=== PATIENT | female | born 1965 | race Caucasian/White ===

== ENCOUNTER 2016-07-16 17:19 | Observation (INO) | payer MEDICARE ==
[~2016-07-16] VITALS: Ht 160 cm; Wt 72.6 kg
[~2016-07-16 17:19] MED LIST: ALBUTEROL SUL0.083 % IN; AMITRIPTYLIN25 MG OR; AMITRIPTYLIN25 MG PO; B-12500 MCG SL; BACLOFEN10 MG OR; BL IBUPROFEN200 MG PO; CARDIZEM30 MG PO; CHERATUSSIN OR; CIPROFLOXACN500 MG PO; CITALOPRAM20 MG PO; CLONAZEPAM0.5 MG OR; CLONAZEPAM1 MG PO; CLONAZEPAM2 MG PO; DEPAKOTE ER500 MG PO; DICLOFENAC SODI75 MG PO; DILTIAZEM30 MG PO; EFFEXOR XR37.5 MG PO; ELAVIL25 MG OR; ELAVIL25 MG PO; ESTRACE2 M1 PO; FLEXERIL PO; GABAPENTIN300 MG OR; KETOROLAC60 MG/2 ML IJ; LIPITOR20 MG PO; LORATADINE10 M1 PO; LORTAB 1010 MG PO; LORTAB 5/3255 MG PO; LOVASTATIN10 M1 PO; LOVASTATIN10 MG PO; MAXALT10 MG OR; MAXALT10 MG PO; MEDDOSEPAK PO; MEDROL4 M1 PO; MELATONIN3 MG PO; MIRAPEX ER0.375 MG PO; MULTIVITAMIN OR; NAPROSYN375 MG PO; NEXIUM40 M1 PO; NEXIUM40 MG PO; NITROSTAT0.4 MG SL; NORCO1 TA1 PO; NORCO1 TAB PO; ONE DAILY FOR WOME1 PO; PERCOCET 10/31 COMBO PO; PHENERGAN25 MG/TAB PO; PRAMIPEXOLE0.125 MG PO; PYRIDIUM200 MG PO; ROBITUSSIN200 MG/10 PO; STERAPRED DS10 MG PO; TESSALON PER100 MG PO; TIZANIDINE HCL4 M1 OR; TIZANIDINE4 MG PO; TOPIRAMATE100 MG PO; TOPIRAMATE25 M1 PO; TOPIRAMATE25 MG PO; TOPIRAMATE50 MG PO; TYLENOL # 31 TA1 PO; ULTRAM50 MG OR; ULTRAM50 MG PO; VICODIN1 TAB PO; ZITHROMAX250 MG OR; ZITHROMAX250 MG PO; ZITHROMAX500 MG OR; ZOFRAN ODT4 MG PO; ZOFRAN ODT8 MG PO
--- NOTE | 2016-07-16 17:36 | NUR ---
PATIENT AMBULATED TO ROOM WITH STEADY GAIT
[2016-07-16] MEDS ORDERED: DILTIAZEM30 MG PO (18:06)
--- NOTE | 2016-07-16 18:06 | NUR ---
PT NOW WITH IV ESTABLISHED, BLOOD DRAWN, AMBULATES TO FOR URINE SPECIMEN. NO DISTRESS NOTED.
[2016-07-16] MEDS ORDERED: PERCOCET1 TA4 PO (18:11)
[2016-07-16] MEDS ORDERED: TEGRETOL200 MG PO (18:11)
[2016-07-16 18:13] LABS: HEMOGLOBIN 11.7 g/dl (12.0-16.0); IMMATURE GRANULOCYTES 0.2 % (0.0-1.0); MEAN CELL VOLUME 85.5 fL CALC (80.0-100.0); MEAN CORPUSCULAR HGB 27.8 pG CALC (26.0-32.0); MEAN CORPUSCULAR HGB CONC 32.5 g/L CALC (32.0-36.0); NEUT# 4.63 thou/uL (2.00-7.15); RED BLOOD COUNT 4.21 mill/uL (4.20-5.60); RED CELL DISTRI WIDTH 13.7 % (11.5-15.5)
[2016-07-16 18:21] LABS: ALBUMIN 4.4 g/dL (3.2-5.0); ALKALINE PHOSPHATASE 124 u/l (38-126); AMYLASE 79 u/l (30-110); ANION GAP 18 (6-22 (CALC)); BILIRUBIN, TOTAL 0.4 mg/dL (0.0-1.4); BUN 9 mg/dL (7-17); BUN/CREATININE RATIO 10 (12-20 (CALC)); CARBON DIOXIDE 23 mmol/l (22-30); CHLORIDE 108 mmol/l (95-108); CREATININE 0.9 mg/dL (0.5-1.0); GFR > 60 ML/MIN (>=60 (CALC)); GFR FOR AFR.AMER. > 60 ML/MIN (>=60 (CALC)); GLUCOSE 95 mg/dL (65-105); LIPASE 97 u/l (23-300); POTASSIUM 3.4 mmol/l (3.5-5.1); SGOT/AST 34 u/l (14-36); SGPT/ALT 41 u/l (9-52); SODIUM 145 mmol/l (137-146)
[2016-07-16 18:33] LABS: MYOGLOBIN 36 ng/mL (0 - 62)
--- NOTE | 2016-07-16 18:34 | NUR ---
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 PT CONFIRMS COMPLETE HYSTERECTOMY AND BILAT SALPINGECTOMY/OOPHORECTOMY
[2016-07-16 18:41] LABS: URINE BILIRUBIN - DIPSTICK NEGATIVE (NEGATIVE); URINE BLOOD DIPSTICK NEGATIVE (NEGATIVE); URINE CLARITY CLEAR; URINE COLOR YELLOW; URINE GLUCOSE - DIPSTICK NEGATIVE (NEGATIVE); URINE KETONE NEGATIVE (NEGATIVE); URINE LEUK ESTERASE TRACE (NEGATIVE); URINE NITRITE - DIPSTICK NEGATIVE (Negative); URINE PROTEIN - DIPSTICK NEGATIVE (NEG-TRACE); URINE UROBILINOGEN - DIPSTICK 0.2 E.U./dL (0.2)
--- NOTE | 2016-07-16 19:34 | NUR ---
PT HAS BEEN DRINKING ORAL CONTRAST PROVIDED, NOW WAITS FOR CT.
--- NOTE | 2016-07-16 21:35 | NUR ---
REPORT RECIEVED. CARE ASSUMED. PATIENT RESTING ON STRETCHER. AWAITING CAT SCAN RESULTS AND PLAN OF CARE.
--- NOTE | 2016-07-16 21:50 | NUR ---
PATIENT TO BE ADMITTED. AWARE OF PLAN OF CARE.
--- NOTE | 2016-07-16 21:56 | NUR ---
PATIENT AMBULATORY TO BATHROOM. STATES SHE IS HAVING DIARRHEA. RLQ PAIN IS UNCHANGED. AWAITING ADMISSION ORDERS AND ROOM ASSIGNMENT.
[2016-07-16 22:10] LABS: BARBITURATES NEGATIVE (NEGATIVE); COCAINE NEGATIVE (NEGATIVE); METHADONE NEGATIVE (NEGATIVE); OXCYCODONE POSITIVE (NEGATIVE); TETRAHYDROCANNABIONOL NEGATIVE (NEGATIVE); TRICYLIC ANTIDEPRESSANTS POSITIVE (NEGATIVE)
--- NOTE | 2016-07-16 22:10 | NUR ---
REPORT CALLED TO [facility]. PATIENT READIED FOR TRANSPORT TO FLOOR.
[2016-07-16 22:20] VITALS: BP 138/87
--- NOTE | 2016-07-16 22:20 | NUR ---
PT ARRIVED TO ROOM 273 VIA W/C ACCOMPANIED BY STAFF, AMBULATING TO STANDING SCALE THEN TO BATHROOM WITH STEADY GAIT. PASSING FLATUS AND LOOSE STOOLS AFTER CT WITH ORAL CONTRAST. ADMITS TO ABD PAIN 06/05. ORIENTED TO BED CONTROLS AND CALL LIGHT.
--- NOTE | 2016-07-17 01:00 | NUR ---
RESTING ON LEFT SIDE WITH EYES CLOSED, RESPIRATIONS EVEN AND UNLABORED.
[2016-07-17 03:30] VITALS: BP 97/52
--- NOTE | 2016-07-17 04:00 | NUR ---
MORNING BLOOD WORK DRAWN BY SERVICE CREW LEADER, TOLERATED WELL.
[2016-07-17 05:19] LABS: HEMATOCRIT 39.8 % (37.0-47.0); HEMOGLOBIN 12.6 g/dl (12.0-16.0); MEAN CELL VOLUME 87.9 fL CALC (80.0-100.0); MEAN CORPUSCULAR HGB 27.8 pG CALC (26.0-32.0); MEAN CORPUSCULAR HGB CONC 31.7 g/L CALC (32.0-36.0); RED BLOOD COUNT 4.53 mill/uL (4.20-5.60); RED CELL DISTRI WIDTH 13.6 % (11.5-15.5)
[2016-07-17 05:47] LABS: ANION GAP 16 (6-22 (CALC)); BUN 7 mg/dL (7-17); BUN/CREATININE RATIO 9 (12-20 (CALC)); CALCIUM 9.3 mg/dL (8.4-10.2); CARBON DIOXIDE 20 mmol/l (22-30); CHLORIDE 112 mmol/l (95-108); CREATININE 0.8 mg/dL (0.5-1.0); GFR > 60 ML/MIN (>=60 (CALC)); GFR FOR AFR.AMER. > 60 ML/MIN (>=60 (CALC)); GLUCOSE 132 mg/dL (65-105); POTASSIUM 4.1 mmol/l (3.5-5.1); SODIUM 144 mmol/l (137-146)
[2016-07-17 08:30] VITALS: BP 107/71
--- NOTE | 2016-07-17 08:30 | NUR ---
PT ASSESSMENT IS COMPLETED: IV SITE IS FREE FROM REDNESS OR EDEMA. PT AMBULATED TO THE BATHROOM. CONTINUE TO OSBERVE AND MONITOR.
--- NOTE | 2016-07-17 12:59 | NUR ---
PT IS SITTING UP IN BED DRINKING HER CLEAR LIQUID DIET, TOLERATING WELL. IV SITE REMOVED CATHETER INTACT. CONTINUE TO OBSERVE AND MONITOR.
--- NOTE | 2016-07-17 15:00 | NUR ---
PT RECEIVED DISCHARGE INSTRUCTIONS THE IV SITE DISCONTINUED CATHETER INTACT. NO REDNESS OR EDEMA. PT C/O HAVING DIARRHEA AGAIN AND SOME STOMACH CRAMPING. STATED" I HAD THAT STUFF LAST NIGHT," EXPLAINED THAT SHE NEEDS TO DRINK FLUID TO WASH OUT THE CONTRAST. VERBALIZED UNDERSTANDING.
== END 2016-07-17 15:03 | disposition home or self-care (01) ==
LOC: ENPENDDIS → ED 17:19 → ED-I 21:35 → ED 21:43 → MS2 21:44
PROVIDERS: Emergency Medicine; ADMIT Internal Medicine; ATTEND Internal Medicine
DX: R10.31 Right lower quadrant pain (principal); K58.0 Irritable bowel syndrome with diarrhea; N80.9 Endometriosis, unspecified; M79.7 Fibromyalgia; F32.9 Major depressive disorder, single episode, unspecified; G43.909 Migraine, unspecified, not intractable, without status migrainosus; R00.0 Tachycardia, unspecified; R25.1 Tremor, unspecified; E87.6 Hypokalemia; R11.0 Nausea; Z79.899 Other long term (current) drug therapy
CPT/HCPCS: Q9967

== ENCOUNTER 2016-08-29 01:45 | Emergency (ER) | payer MEDICARE ==
[~2016-08-29] VITALS: Ht 160 cm; Wt 70.8 kg
[~2016-08-29 01:45] MED LIST changes: +PERCOCET1 TA4 PO; +TEGRETOL200 MG PO
[2016-08-29] MEDS ORDERED: TOPIRAMATE100 MG PO (02:08)
[2016-08-29] MEDS ORDERED: PROAIR HFA IN (02:12)
[2016-08-29 02:55] LABS: HEMATOCRIT 35.3 % (37.0-47.0); HEMOGLOBIN 11.2 g/dl (12.0-16.0); IMMATURE GRANULOCYTES 0.1 % (0.0-1.0); MEAN CELL VOLUME 86.9 fL CALC (80.0-100.0); MEAN CORPUSCULAR HGB 27.6 pG CALC (26.0-32.0); MEAN CORPUSCULAR HGB CONC 31.7 g/L CALC (32.0-36.0); NEUT# 2.96 thou/uL (2.00-7.15); RED BLOOD COUNT 4.06 mill/uL (4.20-5.60); RED CELL DISTRI WIDTH 13.5 % (11.5-15.5)
[2016-08-29 03:07] LABS: ALBUMIN 3.7 g/dL (3.2-5.0); ALKALINE PHOSPHATASE 176 u/l (38-126); AMYLASE 64 u/l (30-110); ANION GAP 13 (6-22 (CALC)); BILIRUBIN, TOTAL 0.3 mg/dL (0.0-1.4); BUN 12 mg/dL (7-17); BUN/CREATININE RATIO 16 (12-20 (CALC)); CALCIUM 9.4 mg/dL (8.4-10.2); CARBON DIOXIDE 23 mmol/l (22-30); CHLORIDE 108 mmol/l (95-108); CREATININE 0.7 mg/dL (0.5-1.0); GFR > 60 ML/MIN (>=60 (CALC)); GFR FOR AFR.AMER. > 60 ML/MIN (>=60 (CALC)); GLUCOSE 101 mg/dL (65-105); LIPASE 151 u/l (23-300); POTASSIUM 3.6 mmol/l (3.5-5.1); SGOT/AST 70 u/l (14-36); SGPT/ALT 141 u/l (9-52); SODIUM 140 mmol/l (137-146); TOTAL PROTEIN 7.1 g/dL (6.3-8.2)
[2016-08-29 03:19] LABS: MYOGLOBIN 24 ng/mL (0 - 62)
[2016-08-29 10:17] VITALS: BP 133/76
== END 2016-08-29 10:48 | disposition home or self-care (01) ==
LOC: ED 01:45
PROVIDERS: Emergency Medicine
DX: R10.11 Right upper quadrant pain (principal); R74.8 Abnormal levels of other serum enzymes

== ENCOUNTER 2017-04-03 13:55 | Emergency (ER) | payer MEDICARE ==
[~2017-04-03] VITALS: Ht 160 cm; Wt 67.0 kg
[~2017-04-03 13:55] MED LIST changes: +PROAIR HFA IN
[2017-04-03] MEDS ORDERED: ZITHROMAX250 MG PO (14:51)
[2017-04-03 14:55] VITALS: BP 139/74
== END 2017-04-03 14:55 | disposition home or self-care (01) ==
LOC: ED 13:55
DX: J40 Bronchitis, not specified as acute or chronic (principal); H66.90 Otitis media, unspecified, unspecified ear; F32.9 Major depressive disorder, single episode, unspecified; M79.7 Fibromyalgia

== ENCOUNTER 2017-04-05 20:43 | Emergency (ER) | payer MEDICARE ==
[~2017-04-05] VITALS: Ht 160 cm; Wt 68.0 kg
[2017-04-05 21:54] LABS: AMYLASE 106 u/l (30-110); LIPASE 287 u/l (23-300)
[2017-04-05 22:07] LABS: MYOGLOBIN 26 ng/mL (0 - 62)
[2017-04-05 23:14] LABS: URINE BILIRUBIN - DIPSTICK NEGATIVE (NEGATIVE); URINE BLOOD DIPSTICK NEGATIVE (NEGATIVE); URINE CLARITY CLEAR; URINE COLOR YELLOW; URINE GLUCOSE - DIPSTICK NEGATIVE (NEGATIVE); URINE KETONE NEGATIVE (NEGATIVE); URINE LEUK ESTERASE NEGATIVE (NEGATIVE); URINE NITRITE - DIPSTICK NEGATIVE (Negative); URINE PH 5.5 (4.5-8.0); URINE PROTEIN - DIPSTICK NEGATIVE (NEG-TRACE); URINE SPECIFIC GRAVITY 1.025; URINE UROBILINOGEN - DIPSTICK 0.2 E.U./dL (0.2)
[2017-04-06 03:54] VITALS: BP 132/74
== END 2017-04-06 04:00 | disposition home or self-care (01) ==
LOC: ED 20:43
PROVIDERS: Emergency Medicine
DX: R10.13 Epigastric pain (principal); R10.33 Periumbilical pain; R11.2 Nausea with vomiting, unspecified; E78.4 Other hyperlipidemia

== ENCOUNTER 2017-06-18 22:39 | Emergency (ER) | payer MEDICARE ==
[~2017-06-18] VITALS: Ht 160 cm; Wt 70.0 kg
[2017-06-19 01:30] LABS: IMMATURE GRANULOCYTES 0.2 % (0.0-1.0); MEAN CELL VOLUME 87.5 fL CALC (80.0-100.0); MEAN CORPUSCULAR HGB 27.9 pG CALC (26.0-32.0); MEAN CORPUSCULAR HGB CONC 31.9 g/L CALC (32.0-36.0); NEUT# 4.99 thou/uL (2.00-7.15); RED BLOOD COUNT 4.23 mill/uL (4.20-5.60); RED CELL DISTRI WIDTH 13.5 % (11.5-15.5)
[2017-06-19 01:38] LABS: HEMOGLOBIN 11.8 g/dl (12.0-16.0)
[2017-06-19 01:40] LABS: ALBUMIN 4.3 g/dL (3.2-5.0); ALKALINE PHOSPHATASE 192 u/l (38-126); ANION GAP 18 (6-22 (CALC)); BILIRUBIN, TOTAL 0.3 mg/dL (0.0-1.4); BUN 13 mg/dL (7-17); BUN/CREATININE RATIO 14 (12-20 (CALC)); CARBON DIOXIDE 23 mmol/l (22-30); CHLORIDE 110 mmol/l (95-108); CREATININE 0.9 mg/dL (0.5-1.0); GFR > 60 ML/MIN (>=60 (CALC)); GFR FOR AFR.AMER. > 60 ML/MIN (>=60 (CALC)); SGPT/ALT 247 u/l (9-52); SODIUM 146 mmol/l (137-146); TOTAL PROTEIN 7.3 g/dL (6.3-8.2)
[2017-06-19 01:44] LABS: SGOT/AST 109 u/l (14-36)
[2017-06-19 01:55] LABS: MYOGLOBIN 242 ng/mL (0 - 62)
[2017-06-19 03:00] VITALS: BP 103/74
== END 2017-06-19 03:10 | disposition left against medical advice (07) ==
LOC: ED 22:39
PROVIDERS: Emergency Medicine
DX: R07.9 Chest pain, unspecified (principal); M79.605 Pain in left leg; R22.42 Localized swelling, mass and lump, left lower limb; Z91.19 Patient's noncompliance with other medical treatment and regimen; M79.7 Fibromyalgia; K21.9 Gastro-esophageal reflux disease without esophagitis

== ENCOUNTER 2017-10-15 19:55 | Emergency (ER) | payer MEDICARE ==
[~2017-10-15] VITALS: Ht 160 cm; Wt 71.2 kg
[2017-10-15 20:50] LABS: URINE BILIRUBIN - DIPSTICK NEGATIVE (NEGATIVE); URINE BLOOD DIPSTICK NEGATIVE (NEGATIVE); URINE COLOR YELLOW; URINE GLUCOSE - DIPSTICK NEGATIVE (NEGATIVE); URINE KETONE NEGATIVE (NEGATIVE); URINE LEUK ESTERASE TRACE (NEGATIVE); URINE NITRITE - DIPSTICK NEGATIVE (Negative); URINE PROTEIN - DIPSTICK NEGATIVE (NEG-TRACE); URINE SPECIFIC GRAVITY >=1.030; URINE UROBILINOGEN - DIPSTICK 0.2 E.U./dL (0.2)
[2017-10-15 20:51] LABS: HEMATOCRIT 38.7 % (37.0-47.0); HEMOGLOBIN 12.2 g/dl (12.0-16.0); IMMATURE GRANULOCYTES 0.3 % (0.0-1.0); MEAN CELL VOLUME 87.2 fL CALC (80.0-100.0); MEAN CORPUSCULAR HGB 27.5 pG CALC (26.0-32.0); MEAN CORPUSCULAR HGB CONC 31.5 g/L CALC (32.0-36.0); NEUT# 4.77 thou/uL (2.00-7.15); RED BLOOD COUNT 4.44 mill/uL (4.20-5.60); RED CELL DISTRI WIDTH 13.8 % (11.5-15.5)
[2017-10-15 21:01] LABS: URINE CLARITY CLEAR
[2017-10-15 21:16] LABS: ALBUMIN 4.1 g/dL (3.2-5.0); ALKALINE PHOSPHATASE 138 u/l (38-126); ANION GAP 14 (6-22 (CALC)); BILIRUBIN, TOTAL 0.4 mg/dL (0.0-1.4); BUN 8 mg/dL (7-17); BUN/CREATININE RATIO 9 (12-20 (CALC)); CARBON DIOXIDE 23 mmol/l (22-30); CHLORIDE 110 mmol/l (95-108); CPK 73 u/l (30-165); CREATININE 0.9 mg/dL (0.5-1.0); GFR > 60 ML/MIN (>=60 (CALC)); GFR FOR AFR.AMER. > 60 ML/MIN (>=60 (CALC)); POTASSIUM 4.4 mmol/l (3.5-5.1); SGOT/AST 61 u/l (14-36); SGPT/ALT 89 u/l (9-52); SODIUM 142 mmol/l (137-146); TOTAL PROTEIN 7.7 g/dL (6.3-8.2)
[2017-10-15 21:27] LABS: MYOGLOBIN 32 ng/mL (0 - 62)
[2017-10-15 21:50] VITALS: BP 125/74
== END 2017-10-15 21:50 | disposition home or self-care (01) ==
LOC: ED 19:55
PROVIDERS: Family Medicine
DX: T67.5XXA Heat exhaustion, unspecified, initial encounter (principal); M79.7 Fibromyalgia; K21.9 Gastro-esophageal reflux disease without esophagitis; G43.909 Migraine, unspecified, not intractable, without status migrainosus; X30.XXXA Exposure to excessive natural heat, initial encounter; Y93.H9 Activity, other involving exterior property and land maintenance, building and construction; Y92.007 Garden or yard of unspecified non-institutional (private) residence as the place of occurrence of the external cause; R06.02 Shortness of breath

== ENCOUNTER 2018-05-10 14:54 | Emergency (ER) | payer MEDICARE ==
[~2018-05-10] VITALS: Ht 160 cm; Wt 70.0 kg
[2018-05-10 17:00] VITALS: BP 155/83
== END 2018-05-10 17:28 | disposition home or self-care (01) ==
LOC: ED 14:54
DX: G43.909 Migraine, unspecified, not intractable, without status migrainosus (principal); M79.7 Fibromyalgia; K21.9 Gastro-esophageal reflux disease without esophagitis

== ENCOUNTER → 2018-06-08 | Outpatient (REF) | payer MEDICARE ==
[~2018-06-08] MED LIST changes: +ALENDRONATE70 MG PO; +AMITRIPTYLIN100 MG PO; +B-12 COMPL1000 MCG/M; +CALCIUM600 M1 PO; +FERROUS SULFAT325 MG PO; +LEXAPRO10 MG PO; +MOTRIN800 MG PO; +OMEGA 31000 MG PO; +SOMA CPD PO; +TORADOL PO; +VITAMIN D31000 UNI1 PO
== END | disposition home or self-care (01) ==
LOC: DI 14:38
PROVIDERS: ATTEND Nurse Practitioner Family
DX: R05 Cough (principal)

== ENCOUNTER 2018-06-17 12:44 | Emergency (ER) | payer MEDICARE ==
[~2018-06-17] VITALS: Ht 160 cm; Wt 70.0 kg
[~2018-06-17 12:44] MED LIST changes: -ALENDRONATE70 MG PO; -AMITRIPTYLIN100 MG PO; -B-12 COMPL1000 MCG/M; -CALCIUM600 M1 PO; -FERROUS SULFAT325 MG PO; -LEXAPRO10 MG PO; -MOTRIN800 MG PO; -OMEGA 31000 MG PO; -SOMA CPD PO; -TORADOL PO; -VITAMIN D31000 UNI1 PO
[2018-06-17] MEDS ORDERED: TORADOL PO (16:37)
[2018-06-17] MEDS ORDERED: SOMA CPD PO (16:37)
[2018-06-17 16:44] VITALS: BP 123/85
[2018-07-04] MEDS ORDERED: ALENDRONATE70 MG PO (15:17)
[2018-07-04] MEDS ORDERED: B-12 COMPL1000 MCG/M (15:17)
[2018-07-04] MEDS ORDERED: VITAMIN D31000 UNI1 PO (15:18)
[2018-07-04] MEDS ORDERED: CALCIUM600 M1 PO (15:18)
[2018-07-04] MEDS ORDERED: OMEGA 31000 MG PO (15:19)
[2018-07-04] MEDS ORDERED: AMITRIPTYLIN100 MG PO (15:20)
[2018-07-04] MEDS ORDERED: LEXAPRO10 MG PO (15:21)
[2018-07-04] MEDS ORDERED: FERROUS SULFAT325 MG PO (15:22)
== END 2018-06-17 16:53 | disposition home or self-care (01) ==
LOC: ED 12:44
DX: S39.012A Strain of muscle, fascia and tendon of lower back, initial encounter (principal); M79.7 Fibromyalgia; K21.9 Gastro-esophageal reflux disease without esophagitis; X50.0XXA Overexertion from strenuous movement or load, initial encounter; Y92.512 Supermarket, store or market as the place of occurrence of the external cause

== ENCOUNTER → 2018-06-22 | Outpatient (REF) | payer MEDICARE ==
[~2018-06-22] MED LIST changes: +ALENDRONATE70 MG PO; +AMITRIPTYLIN100 MG PO; +B-12 COMPL1000 MCG/M; +CALCIUM600 M1 PO; +FERROUS SULFAT325 MG PO; +LEXAPRO10 MG PO; +MOTRIN800 MG PO; +OMEGA 31000 MG PO; +SOMA CPD PO; +TORADOL PO; +VITAMIN D31000 UNI1 PO
== END | disposition home or self-care (01) ==
LOC: MAMMO 10:30
PROVIDERS: ATTEND Nurse Practitioner Family
DX: Z12.31 Encounter for screening mammogram for malignant neoplasm of breast (principal); N95.1 Menopausal and female climacteric states

== ENCOUNTER → 2018-06-29 | Outpatient (REF) | payer MEDICARE | END | disposition home or self-care (01) | LOC: CT 13:54 | PROVIDERS: ATTEND Nurse Practitioner Family | DX: R10.11 Right upper quadrant pain (principal) ==

== ENCOUNTER 2018-07-20 08:10 | Day surgery (SDC) | payer MEDICARE ==
[~2018-07-20] VITALS: Ht 160 cm; Wt 67.1 kg
[~2018-07-20 08:10] MED LIST changes: -MOTRIN800 MG PO
[2018-07-20] MEDS ORDERED: MOTRIN800 MG PO (10:31)
[2018-07-20 11:00] VITALS: BP 115/70
== END 2018-07-20 11:18 | disposition home or self-care (01) ==
LOC: ORM 08:10
PROVIDERS: ATTEND Surgery
PROC: 0JB60ZZ Excision of Chest Subcutaneous Tissue and Fascia, Open Approach (ICD-10-PCS; principal; 2018-07-20)
DX: D17.1 Benign lipomatous neoplasm of skin and subcutaneous tissue of trunk (principal)

== ENCOUNTER 2018-08-22 23:56 | Emergency (ER) | payer MEDICARE ==
[~2018-08-22] VITALS: Ht 160 cm; Wt 66.0 kg
[~2018-08-22 23:56] MED LIST changes: +MOTRIN800 MG PO
[2018-08-23] MEDS ORDERED: AMITRIPTYLIN100 MG PO (00:29)
[2018-08-23] MEDS ORDERED: PERCOCET 10/31 COMBO PO (00:30)
[2018-08-23 00:38] LABS: URINE BILIRUBIN - DIPSTICK NEGATIVE (NEGATIVE); URINE BLOOD DIPSTICK NEGATIVE (NEGATIVE); URINE COLOR YELLOW; URINE GLUCOSE - DIPSTICK NEGATIVE (NEGATIVE); URINE KETONE NEGATIVE (NEGATIVE); URINE LEUK ESTERASE NEGATIVE (NEGATIVE); URINE NITRITE - DIPSTICK NEGATIVE (Negative); URINE PROTEIN - DIPSTICK NEGATIVE (NEG-TRACE); URINE SPECIFIC GRAVITY 1.015; URINE UROBILINOGEN - DIPSTICK 0.2 E.U./dL (0.2)
[2018-08-23 02:14] LABS: HEMATOCRIT 39.1 % (37.0-47.0); HEMOGLOBIN 12.3 g/dl (12.0-16.0); IMMATURE GRANULOCYTES 0.2 % (0.0-5.0); MEAN CELL VOLUME 91.8 fL CALC (80.0-100.0); MEAN CORPUSCULAR HGB 28.9 pG CALC (26.0-32.0); MEAN CORPUSCULAR HGB CONC 31.5 g/L CALC (32.0-36.0); NEUT# 4.01 thou/uL (2.00-7.15); RED BLOOD COUNT 4.26 mill/uL (4.20-5.60); RED CELL DISTRI WIDTH 13.1 % (11.5-15.5)
[2018-08-23 02:29] LABS: ALBUMIN 4.3 g/dL (3.2-5.0); ALKALINE PHOSPHATASE 113 u/l (38-126); ANION GAP 15 (6-22 (CALC)); BILIRUBIN, TOTAL 0.5 mg/dL (0.0-1.4); BUN 12 mg/dL (7-17); BUN/CREATININE RATIO 15 (12-20 (CALC)); CARBON DIOXIDE 23 mmol/l (22-30); CHLORIDE 106 mmol/l (95-108); CREATININE 0.8 mg/dL (0.5-1.0); GFR > 60 ML/MIN (>=60 (CALC)); GFR FOR AFR.AMER. > 60 ML/MIN (>=60 (CALC)); POTASSIUM 4.2 mmol/l (3.5-5.1); SGOT/AST 28 u/l (14-36); SODIUM 140 mmol/l (137-146); TOTAL PROTEIN 7.3 g/dL (6.3-8.2)
[2018-08-23] MEDS ORDERED: CIPROFLOXACN500 MG PO (03:35)
[2018-08-23 03:50] VITALS: BP 123/71
== END 2018-08-23 03:58 | disposition home or self-care (01) ==
LOC: ED 23:56
PROVIDERS: Emergency Medicine
DX: N39.0 Urinary tract infection, site not specified (principal); R30.0 Dysuria; R35.0 Frequency of micturition; R10.30 Lower abdominal pain, unspecified; M54.5 Low back pain

== ENCOUNTER 2018-09-14 21:28 | Emergency (ER) | payer MEDICARE ==
[~2018-09-14] VITALS: Ht 160 cm; Wt 65.9 kg
[2018-09-14 23:19] VITALS: BP 112/69
== END 2018-09-14 23:19 | disposition home or self-care (01) ==
LOC: ED 21:28
DX: G43.909 Migraine, unspecified, not intractable, without status migrainosus (principal)

== ENCOUNTER 2019-02-24 19:31 | Emergency (ER) | payer MEDICARE ==
[~2019-02-24] VITALS: Ht 160 cm; Wt 65.0 kg
[~2019-02-24 19:31] MED LIST changes: +ALENDRONATE SOD70 MG PO; -ALENDRONATE70 MG PO; -B-12 COMPL1000 MCG/M; +B-12 COMPL1000 MCG/M IJ
[2019-02-24] MEDS ORDERED: MELOXICAM15 MG PO (20:06)
[2019-02-24] MEDS ORDERED: ESCITALOPRAM OX20 MG PO (20:07)
[2019-02-24] MEDS ORDERED: TOPIRAMATE100 MG PO (20:08)
[2019-02-24 20:15] VITALS: BP 121/79
== END 2019-02-24 20:15 | disposition home or self-care (01) ==
LOC: ED 19:31
PROC: 0HQGXZZ Repair Left Hand Skin, External Approach (ICD-10-PCS; principal; 2019-02-24)
DX: S61.012A Laceration without foreign body of left thumb without damage to nail, initial encounter (principal); W26.0XXA Contact with knife, initial encounter; Y93.89 Activity, other specified; Y92.22 Religious institution as the place of occurrence of the external cause

== ENCOUNTER 2019-06-07 | Day surgery (SDC) | payer MEDICARE ==
[~2019-06-07] MED LIST changes: +CANNABIS PO; +ESCITALOPRAM OX20 MG PO; +MELOXICAM15 MG PO
[2019-06-07] MEDS ORDERED: IBUPROFEN600 MG PO (10:24)
== END 2019-06-07 11:08 | disposition home or self-care (01) ==
PROC: 0JB60ZZ Excision of Chest Subcutaneous Tissue and Fascia, Open Approach (ICD-10-PCS; principal; 2019-06-07)
DX: D17.1 Benign lipomatous neoplasm of skin and subcutaneous tissue of trunk (principal)
CPT/HCPCS: J0131

== ENCOUNTER 2019-06-10 | Emergency (ER) | payer MEDICARE ==
[~2019-06-10] MED LIST changes: +IBUPROFEN600 MG PO
[2019-06-10] MEDS ORDERED: PREDNISONE50 MG PO (23:57)
== END 2019-06-11 00:22 | disposition home or self-care (01) ==
DX: L23.9 Allergic contact dermatitis, unspecified cause (principal)

== ENCOUNTER 2019-07-17 | Emergency (ER) | payer MEDICARE ==
[~2019-07-17] MED LIST changes: +PREDNISONE50 MG PO
== END 2019-07-17 22:54 | disposition home or self-care (01) ==
DX: S63.501A Unspecified sprain of right wrist, initial encounter (principal); S80.212A Abrasion, left knee, initial encounter; S80.01XA Contusion of right knee, initial encounter; M54.5 Low back pain; M79.7 Fibromyalgia; W10.9XXA Fall (on) (from) unspecified stairs and steps, initial encounter; Y92.008 Other place in unspecified non-institutional (private) residence as the place of occurrence of the external cause

== ENCOUNTER 2019-09-14 11:18 | Emergency (ER) | payer MEDICARE ==
[2019-09-14 11:51] LABS: HEMOGLOBIN 12.5 g/dl (12.0-16.0); IMMATURE GRANULOCYTES 0.4 % (0.0-5.0); MEAN CELL VOLUME 91.3 fL CALC (80.0-100.0); MEAN CORPUSCULAR HGB 29.3 pG CALC (26.0-32.0); MEAN CORPUSCULAR HGB CONC 32.1 g/dL CAL (32.0-36.0); NEUT# 4.55 thou/uL (2.00-7.15); RED BLOOD COUNT 4.27 mill/uL (4.20-5.60); RED CELL DISTRI WIDTH 12.9 % (11.5-15.5)
[2019-09-14 12:35] LABS: ALBUMIN 3.9 g/dL (3.2-5.0); ALKALINE PHOSPHATASE 93 u/l (38-126); ANION GAP 8 (6-22 (CALC)); BILIRUBIN, TOTAL 0.3 mg/dL (0.0-1.4); BUN 8 mg/dL (7-17); BUN/CREATININE RATIO 8 (12-20 (CALC)); CARBON DIOXIDE 27 mmol/l (22-30); CHLORIDE 107 mmol/l (95-108); GFR 58 ML/MIN (>=60 (CALC)); GFR FOR AFR.AMER. > 60 ML/MIN (>=60 (CALC)); POTASSIUM 3.4 mmol/l (3.5-5.1); SGOT/AST 21 u/l (14-36); SODIUM 139 mmol/l (137-146); TOTAL PROTEIN 7.5 g/dL (6.3-8.2)
[2019-09-14 12:48] LABS: MYOGLOBIN 34 ng/mL (0 - 62)
[2019-09-14] MEDS ORDERED: FIORICET PO (13:29)
[2019-09-14 13:41] VITALS: BP 103/70
[2019-09-14 13:41] LABS: URINE BILIRUBIN - DIPSTICK NEGATIVE (NEGATIVE); URINE BLOOD DIPSTICK NEGATIVE (NEGATIVE); URINE COLOR YELLOW; URINE GLUCOSE - DIPSTICK NEGATIVE (NEGATIVE); URINE KETONE NEGATIVE (NEGATIVE); URINE LEUK ESTERASE TRACE (NEGATIVE); URINE NITRITE - DIPSTICK NEGATIVE (Negative); URINE PH 5.5 (4.5-8.0); URINE PROTEIN - DIPSTICK NEGATIVE (NEG-TRACE); URINE SPECIFIC GRAVITY 1.025; URINE UROBILINOGEN - DIPSTICK 0.2 E.U./dL (0.2)
== END 2019-09-14 13:52 | disposition home or self-care (01) ==
LOC: ED 11:18
PROVIDERS: Emergency Medicine
DX: G43.909 Migraine, unspecified, not intractable, without status migrainosus (principal)

== ENCOUNTER 2020-02-27 18:50 | Emergency (ER) | payer MEDICARE ==
[~2020-02-27] VITALS: Ht 160 cm; Wt 70.0 kg
[~2020-02-27 18:50] MED LIST changes: +FIORICET PO
[2020-02-27 19:53] LABS: HEMATOCRIT 43.1 % (37.0-47.0); HEMOGLOBIN 13.5 g/dl (12.0-16.0); IMMATURE GRANULOCYTES 0.3 % (0.0-5.0); MEAN CELL VOLUME 91.1 fL CALC (80.0-100.0); MEAN CORPUSCULAR HGB 28.5 pG CALC (26.0-32.0); MEAN CORPUSCULAR HGB CONC 31.3 g/dL CAL (32.0-36.0); NEUT# 3.68 thou/uL (2.00-7.15); RED BLOOD COUNT 4.73 mill/uL (4.20-5.60); RED CELL DISTRI WIDTH 12.9 % (11.5-15.5)
[2020-02-27 19:59] LABS: ALBUMIN 4.3 g/dL (3.2-5.0); ALKALINE PHOSPHATASE 154 u/l (38-126); BUN 13 mg/dL (7-17); BUN/CREATININE RATIO 11 (12-20 (CALC)); CARBON DIOXIDE 23 mmol/l (22-30); CHLORIDE 107 mmol/l (95-108); CREATININE 1.2 mg/dL (0.5-1.0); GFR 47 ML/MIN (>=60 (CALC)); GFR FOR AFR.AMER. 57 ML/MIN (>=60 (CALC)); SODIUM 141 mmol/l (137-146); TOTAL PROTEIN 7.8 g/dL (6.3-8.2)
[2020-02-27 20:03] LABS: ANION GAP 15 (6-22 (CALC)); BILIRUBIN, TOTAL 0.5 mg/dL (0.0-1.4); POTASSIUM 3.5 mmol/l (3.5-5.1); SGOT/AST 92 u/l (14-36)
[2020-02-27 22:13] VITALS: BP 114/74
== END 2020-02-27 22:13 | disposition home or self-care (01) ==
LOC: ED 18:50
PROVIDERS: Family Medicine
DX: R07.9 Chest pain, unspecified (principal); M79.7 Fibromyalgia; K21.9 Gastro-esophageal reflux disease without esophagitis; Z20.828 Contact with and (suspected) exposure to other viral communicable diseases
CPT/HCPCS: Q9967

== ENCOUNTER 2020-03-10 09:57 | Emergency (ER) | payer MEDICARE ==
[~2020-03-10] VITALS: Ht 160 cm; Wt 63.6 kg
[2020-03-10] MEDS ORDERED: PERCOCET 10/31 COMBO PO (11:06)
[2020-03-10] MEDS ORDERED: NEXIUM40 M1 PO (11:06)
[2020-03-10] MEDS ORDERED: DILTIAZEM30 MG PO (11:07)
[2020-03-10] MEDS ORDERED: LEXAPRO10 MG PO (11:07)
[2020-03-10] MEDS ORDERED: TOPIRAMATE100 MG PO (11:07)
[2020-03-10] MEDS ORDERED: D3250 MCG PO (11:08)
[2020-03-10] MEDS ORDERED: FERR SULFATE325 MG PO (11:08)
[2020-03-10] MEDS ORDERED: CYANOCOBAL1000 MCG/M IM (11:09)
[2020-03-10] MEDS ORDERED: AMITRIPTYLIN25 MG PO (11:10)
[2020-03-10] MEDS ORDERED: ALENDRONATE35 MG PO (11:10)
[2020-03-10 11:53] VITALS: BP 103/75
== END 2020-03-10 11:58 | disposition home or self-care (01) ==
LOC: ED 09:57
DX: G44.009 Cluster headache syndrome, unspecified, not intractable (principal); M79.7 Fibromyalgia; K21.9 Gastro-esophageal reflux disease without esophagitis

== ENCOUNTER 2020-05-01 20:58 | Emergency (ER) | payer MEDICARE ==
[~2020-05-01] VITALS: Ht 160 cm; Wt 61.8 kg
[~2020-05-01 20:58] MED LIST changes: +ALENDRONATE35 MG PO; +CYANOCOBAL1000 MCG/M IM; +D3250 MCG PO; +FERR SULFATE325 MG PO
[2020-05-01 23:11] VITALS: BP 128/70
== END 2020-05-01 23:11 | disposition home or self-care (01) ==
LOC: ED 20:58
DX: S93.401A Sprain of unspecified ligament of right ankle, initial encounter (principal); S93.601A Unspecified sprain of right foot, initial encounter; S80.212A Abrasion, left knee, initial encounter; K21.9 Gastro-esophageal reflux disease without esophagitis; M79.7 Fibromyalgia; M19.90 Unspecified osteoarthritis, unspecified site; W01.0XXA Fall on same level from slipping, tripping and stumbling without subsequent striking against object, initial encounter; Y92.481 Parking lot as the place of occurrence of the external cause

== ENCOUNTER 2020-05-11 15:42 | Emergency (ER) | payer MEDICARE ==
[~2020-05-11] VITALS: Ht 160 cm; Wt 70.0 kg
[2020-05-11 16:28] VITALS: BP 121/65
== END 2020-05-11 16:30 | disposition home or self-care (01) ==
LOC: ED 15:42
DX: T50.911A Poisoning by multiple unspecified drugs, medicaments and biological substances, accidental (unintentional), initial encounter (principal); K21.9 Gastro-esophageal reflux disease without esophagitis; M79.7 Fibromyalgia; Y92.009 Unspecified place in unspecified non-institutional (private) residence as the place of occurrence of the external cause

== ENCOUNTER 2020-10-08 20:19 | Emergency (ER) | payer MEDICARE ==
[~2020-10-08] VITALS: Ht 160 cm; Wt 64.0 kg
[2020-10-08] MEDS ORDERED: ALENDRONATE SOD70 MG PO (20:40)
[2020-10-08] MEDS ORDERED: CYANOCOBALAM IM (20:45)
[2020-10-08] MEDS ORDERED: EMGALITY100 MG/ML (20:46)
[2020-10-08 20:56] VITALS: BP 108/68
== END 2020-10-08 21:00 | disposition home or self-care (01) ==
LOC: ED 20:19
DX: G44.009 Cluster headache syndrome, unspecified, not intractable (principal); M79.7 Fibromyalgia; K21.9 Gastro-esophageal reflux disease without esophagitis

== ENCOUNTER 2021-05-06 07:47 | Emergency (ER) | payer MEDICARE ==
[~2021-05-06] VITALS: Ht 160 cm; Wt 78.0 kg
[~2021-05-06 07:47] MED LIST changes: +CYANOCOBALAM IM; +EMGALITY100 MG/ML
[2021-05-06 08:24] LABS: GFR 58 ML/MIN (>=60 (CALC)); GFR FOR AFR.AMER. > 60 ML/MIN (>=60 (CALC))
[2021-05-06 08:40] LABS: HEMATOCRIT 41.8 % (37.0-47.0); HEMOGLOBIN 13.3 g/dl (12.0-16.0); IMMATURE GRANULOCYTES 0.3 % (0.0-5.0); MEAN CELL VOLUME 89.9 fL CALC (80.0-100.0); MEAN CORPUSCULAR HGB 28.6 pG CALC (26.0-32.0); MEAN CORPUSCULAR HGB CONC 31.8 g/dL CAL (32.0-36.0); NEUT# 8.52 thou/uL (2.00-7.15); RED BLOOD COUNT 4.65 mill/uL (4.20-5.60); RED CELL DISTRI WIDTH 13.3 % (11.5-15.5)
[2021-05-06 09:11] LABS: ALBUMIN 3.9 g/dL (3.2-5.0); ALKALINE PHOSPHATASE 182 u/l (38-126); BUN 7 mg/dL (7-17); BUN/CREATININE RATIO 6 (12-20 (CALC)); CHLORIDE 111 mmol/l (95-108); CREATININE 1.1 mg/dL (0.5-1.0); GFR 52 ML/MIN (>=60 (CALC)); GFR FOR AFR.AMER. > 60 ML/MIN (>=60 (CALC)); POTASSIUM 3.6 mmol/l (3.5-5.1); SGOT/AST 34 u/l (14-36); SODIUM 144 mmol/l (137-146)
[2021-05-06 09:13] LABS: ANION GAP 18 (6-22 (CALC)); BILIRUBIN, TOTAL 0.8 mg/dL (0.0-1.4); CARBON DIOXIDE 19 mmol/l (22-30)
[2021-05-06 12:00] VITALS: BP 109/89
== END 2021-05-06 12:00 | disposition short-term general hospital (02) ==
LOC: ED 07:47
PROVIDERS: Family Medicine
PROC: 02HV33Z Insertion of Infusion Device into Superior Vena Cava, Percutaneous Approach (ICD-10-PCS; principal; 2021-05-06)
DX: U07.1 COVID-19 (principal); I26.92 Saddle embolus of pulmonary artery without acute cor pulmonale; I95.9 Hypotension, unspecified
CPT/HCPCS: J1644; J2997; Q9967

== ENCOUNTER 2021-07-27 13:36 | Emergency (ER) | payer MEDICARE ==
[~2021-07-27] VITALS: Ht 160 cm; Wt 65.9 kg
[2021-07-27 13:45] VITALS: BP 130/82
[2021-07-27 14:01] VITALS: BP 117/73
[2021-07-27 14:15] VITALS: BP 106/43
[2021-07-27 14:30] VITALS: BP 102/65
[2021-07-27 14:45] VITALS: BP 109/64
[2021-07-27 14:53] VITALS: BP 109/64
== END 2021-07-27 15:10 | disposition home or self-care (01) ==
LOC: ED 13:36
DX: G44.009 Cluster headache syndrome, unspecified, not intractable (principal)

== ENCOUNTER 2021-10-01 21:14 | Emergency (ER) | payer MEDICARE ==
[~2021-10-01] VITALS: Ht 160 cm; Wt 68.1 kg
[2021-10-01] MEDS ORDERED: ELIQUIS5 MG PO (21:28)
[2021-10-01 22:48] VITALS: BP 124/86
[2021-10-01 22:51] VITALS: BP 124/86
== END 2021-10-01 22:58 | disposition home or self-care (01) ==
LOC: ED 21:14
DX: G44.009 Cluster headache syndrome, unspecified, not intractable (principal)

== ENCOUNTER 2021-11-16 14:51 | Emergency (ER) | payer MEDICARE ==
[~2021-11-16] VITALS: Ht 160 cm; Wt 67.2 kg
[~2021-11-16 14:51] MED LIST changes: +ELIQUIS5 MG PO
[2021-11-16] MEDS ORDERED: AMITRIPTYLINE150 MG PO (15:27)
[2021-11-16] MEDS ORDERED: CBD/THC PO (15:31)
[2021-11-16] MEDS ORDERED: OXYCODONE HCL10 MG PO (15:32)
[2021-11-16 15:41] LABS: HEMATOCRIT 43.1 % (37.0-47.0); IMMATURE GRANULOCYTES 0.1 % (0.0-5.0); MEAN CELL VOLUME 94.9 fL CALC (80.0-100.0); MEAN CORPUSCULAR HGB 28.6 pG CALC (26.0-32.0); MEAN CORPUSCULAR HGB CONC 30.2 g/dL CAL (32.0-36.0); NEUT# 3.9 thou/uL (2.00-7.15); RED BLOOD COUNT 4.54 mill/uL (4.20-5.60)
[2021-11-16 15:52] LABS: ALBUMIN 3.9 g/dL (3.2-5.0); ALKALINE PHOSPHATASE 202 u/l (38-126); ANION GAP 13 (6-22 (CALC)); BILIRUBIN, TOTAL 0.5 mg/dL (0.0-1.4); BUN 9 mg/dL (7-17); BUN/CREATININE RATIO 8 (12-20 (CALC)); CARBON DIOXIDE 22 mmol/l (22-30); CHLORIDE 109 mmol/l (95-108); CREATININE 1.1 mg/dL (0.5-1.0); GFR FOR AFR.AMER. > 60 ML/MIN (>=60 (CALC)); GFR OTHER RACES 52 ML/MIN (>=60 (CALC)); POTASSIUM 3.8 mmol/l (3.5-5.1); SODIUM 140 mmol/l (137-146); TOTAL PROTEIN 7.8 g/dL (6.3-8.2)
[2021-11-16 15:57] LABS: SGOT/AST 108 u/l (14-36)
[2021-11-16 16:22] LABS: INTERNATIONAL NORMALIZED RATIO 1.1 RATIO (0.7-1.3); PROTHROMBIN TIME 11.5 SECONDS (9.0-12.5)
[2021-11-16 17:01] VITALS: BP 121/83
== END 2021-11-16 17:35 | disposition left against medical advice (07) ==
LOC: ED 14:51
PROVIDERS: Family Medicine
DX: G45.9 Transient cerebral ischemic attack, unspecified (principal); I10 Essential (primary) hypertension; M79.7 Fibromyalgia; K58.9 Irritable bowel syndrome, unspecified; G43.109 Migraine with aura, not intractable, without status migrainosus; Z91.19 Patient's noncompliance with other medical treatment and regimen; Z86.718 Personal history of other venous thrombosis and embolism; Z79.01 Long term (current) use of anticoagulants; Z20.822 Contact with and (suspected) exposure to COVID-19
CPT/HCPCS: Q3014; Q9967

== ENCOUNTER 2022-02-18 16:01 | Emergency (ER) | payer MEDICARE ==
[~2022-02-18] VITALS: Ht 160 cm; Wt 67.2 kg
[~2022-02-18 16:01] MED LIST changes: +AMITRIPTYLINE150 MG PO; +CBD/THC PO; +OXYCODONE HCL10 MG PO
[2022-02-18 16:35] LABS: HEMATOCRIT 42.9 % (37.0-47.0); HEMOGLOBIN 13.5 g/dl (12.0-16.0); IMMATURE GRANULOCYTES 0.3 % (0.0-5.0); MEAN CELL VOLUME 89.2 fL CALC (80.0-100.0); MEAN CORPUSCULAR HGB 28.1 pG CALC (26.0-32.0); MEAN CORPUSCULAR HGB CONC 31.5 g/dL CAL (32.0-36.0); NEUT# 3.78 thou/uL (2.00-7.15); RED BLOOD COUNT 4.81 mill/uL (4.20-5.60); RED CELL DISTRI WIDTH 13.6 % (11.5-15.5)
[2022-02-18 16:47] LABS: ALBUMIN 4.5 g/dL (3.2-5.0); ALKALINE PHOSPHATASE 194 u/l (38-126); ANION GAP 15 (6-22 (CALC)); BILIRUBIN, TOTAL 0.4 mg/dL (0.0-1.4); BUN 11 mg/dL (7-17); BUN/CREATININE RATIO 11 (12-20 (CALC)); CARBON DIOXIDE 23 mmol/l (22-30); CHLORIDE 109 mmol/l (95-108); GFR FOR AFR.AMER. > 60 ML/MIN (>=60 (CALC)); GFR OTHER RACES 58 ML/MIN (>=60 (CALC)); POTASSIUM 3.8 mmol/l (3.5-5.1); SGOT/AST 54 u/l (14-36); SODIUM 144 mmol/l (137-146); TOTAL PROTEIN 8.9 g/dL (6.3-8.2)
[2022-02-18 16:52] LABS: INTERNATIONAL NORMALIZED RATIO 1.1 RATIO (0.7-1.3); PROTHROMBIN TIME 10.6 SECONDS (9.0-12.5)
[2022-02-18 16:53] VITALS: BP 135/76
[2022-02-18 17:00] VITALS: BP 135/78
[2022-02-18 17:15] VITALS: BP 119/67
[2022-02-18 17:30] VITALS: BP 129/81
[2022-02-18 17:45] VITALS: BP 130/71
[2022-02-18 18:47] VITALS: BP 130/71
== END 2022-02-18 18:06 | disposition home or self-care (01) ==
LOC: ED 16:01
PROVIDERS: Emergency Medicine
DX: G43.109 Migraine with aura, not intractable, without status migrainosus (principal)
CPT/HCPCS: J3101

== ENCOUNTER 2022-03-20 20:46 | Observation (INO) | payer MEDICARE ==
[~2022-03-20] VITALS: Ht 160 cm; Wt 67.7 kg
[2022-03-20 21:17] LABS: HEMOGLOBIN 13.2 g/dl (12.0-16.0); IMMATURE GRANULOCYTES 0.8 % (0.0-5.0); MEAN CELL VOLUME 90.7 fL CALC (80.0-100.0); MEAN CORPUSCULAR HGB 28.5 pG CALC (26.0-32.0); MEAN CORPUSCULAR HGB CONC 31.4 g/dL CAL (32.0-36.0); NEUT# 3.7 thou/uL (2.00-7.15); RED BLOOD COUNT 4.63 mill/uL (4.20-5.60); RED CELL DISTRI WIDTH 13.8 % (11.5-15.5)
[2022-03-20 21:29] LABS: ALBUMIN 3.8 g/dL (3.2-5.0); ALKALINE PHOSPHATASE 167 u/l (38-126); ANION GAP 11 (6-22 (CALC)); BILIRUBIN, TOTAL 0.4 mg/dL (0.0-1.4); BUN 7 mg/dL (7-17); BUN/CREATININE RATIO 7 (12-20 (CALC)); CARBON DIOXIDE 22 mmol/l (22-30); CHLORIDE 114 mmol/l (95-108); GFR FOR AFR.AMER. > 60 ML/MIN (>=60 (CALC)); GFR OTHER RACES 58 ML/MIN (>=60 (CALC)); POTASSIUM 4.4 mmol/l (3.5-5.1); SGOT/AST 24 u/l (14-36); SODIUM 143 mmol/l (137-146)
[2022-03-20 21:31] LABS: TOTAL PROTEIN 7.1 g/dL (6.3-8.2)
[2022-03-21 00:51] VITALS: BP 129/82
--- NOTE | 2022-03-21 03:11 | NUR ---
PT ALERT, ORIENTED, ABLE TO MAKE NEEDS KNOWN, NEURO INTACT. PT HAS SMALL BUMP ON RIGHT SIDE OF FOREHEAD, NO ABRASIONS OR REDNESS NOTED. PT DENIES HEADACHE. PT RESTING IN NO SIGN OF DISCOMFORT. WILL CONTINUE TO MONTIOR.
[2022-03-21 03:48] VITALS: BP 112/71
--- NOTE | 2022-03-21 07:00 | NUR ---
BEDSIDE SHIFT REPORT COMPLETE. PATIENT RESTING QUIETLY IN BED, ALARM ACTIVATED.
[2022-03-21 07:39] VITALS: BP 95/62
--- NOTE | 2022-03-21 09:40 | NUR ---
ASSESSMENT COMPLETE. PATIENT ALERT AND ORIENTED X3. VSS. NO DISTRESS NOTED. C/O RIGHT SHOULDER PAIN, MEDICATED WITH OXYCODONE. ASSISTED TO RESTROOM, TOLERATED WELL. NO FURTHER CONCERNS EXPRESSED.
[2022-03-21 15:51] VITALS: BP 108/70
[2022-03-21 15:52] VITALS: BP 108/70
[2022-03-21 19:06] VITALS: BP 109/72
--- NOTE | 2022-03-21 20:50 | NUR ---
PT IN BED WATCHING TV NO S/S OF DISTRESS NOTED PT REPORT PAIN TO Adrienne ESTRADA. MEDICATED PER JUN. ASSESMENT COMPLETED. CALL LIGHT IN REACH AND BED IN LOWEST POSITION.
--- NOTE | 2022-03-22 00:25 | NUR ---
PT IN BED RESTING WITH EYES CLOSED BREATHING EVEN AND UNLABORED.NO S/S OF DISTRESS NOTED. CALL LIGHT IN REACH AND BED IN LOWEST POSITIN.
[2022-03-22 03:32] VITALS: BP 123/78
--- NOTE | 2022-03-22 04:13 | NUR ---
PT IN BED RESTING WITH EYES CLOSED BREATHING EVEN AND UNLABORED. NO S/S OF DISTRESS NOTED. CALL LIGHT IN REACH AND BED IN LOWEST POSITION.
[2022-03-22 05:28] LABS: MEAN CELL VOLUME 91.4 fL CALC (80.0-100.0); MEAN CORPUSCULAR HGB 28.8 pG CALC (26.0-32.0); MEAN CORPUSCULAR HGB CONC 31.5 g/dL CAL (32.0-36.0); RED BLOOD COUNT 3.85 mill/uL (4.20-5.60); RED CELL DISTRI WIDTH 13.7 % (11.5-15.5)
[2022-03-22 05:30] LABS: HEMATOCRIT 35.2 % (37.0-47.0); HEMOGLOBIN 11.1 g/dl (12.0-16.0)
[2022-03-22 05:52] LABS: ANION GAP 9 (6-22 (CALC)); BUN 7 mg/dL (7-17); BUN/CREATININE RATIO 6 (12-20 (CALC)); CARBON DIOXIDE 20 mmol/l (22-30); CHLORIDE 117 mmol/l (95-108); CREATININE 1.1 mg/dL (0.5-1.0); GFR FOR AFR.AMER. > 60 ML/MIN (>=60 (CALC)); GFR OTHER RACES 52 ML/MIN (>=60 (CALC)); SODIUM 142 mmol/l (137-146)
[2022-03-22 06:52] VITALS: BP 112/76
--- NOTE | 2022-03-22 08:00 | NUR ---
GOT REPORT FROM ANIMAL ECOLOGIST NURSE. PATIENT ASSESSED, PATIENT IS AOX3, IN BED EATING BREAKFAST AND WATCHING TELEVISION. PATIENT DENIES ANY DISTRESS NOR DISCOMFORT. PATIENT HAS CALL LIGHT AND BED SIDE TABLE WITH IN REACH. ADVISED TO CALL IF SHE NEEDED ANYTHING. PATIENT VERBALIZED UNDERSTANDING.
--- NOTE | 2022-03-22 12:00 | NUR ---
PATIENT IS SITTING IN BED AND EATING LUNCH. PATIENT DENIES ANY DISTRESS. CALL LIGHT AND BEDSIDE TABLE WITHIN REACH. ADVISED PATIENT TO CALL IF NEEDING ANYTHING. PATIENT VERBALIZED UNDERSTANDING.
[2022-03-22] MEDS ORDERED: MECLIZINE25 MG PO (13:09)
--- NOTE | 2022-03-22 15:28 | NUR ---
Discharge instructions given. Patient verbalizes understanding of same. Discharged in stable condition via Wheelchair to Home with family. All belongings sent with pt.
== END 2022-03-22 15:28 | disposition home or self-care (01) ==
LOC: ED 20:46 → ED-I 21:18 → ED 21:18 → ED-I 21:55 → ED 22:56 → MS2 22:57
PROVIDERS: Emergency Medicine; ADMIT Internal Medicine; ATTEND Internal Medicine
DX: S09.90XA Unspecified injury of head, initial encounter (principal); S42.031A Displaced fracture of lateral end of right clavicle, initial encounter for closed fracture; R42 Dizziness and giddiness; G43.909 Migraine, unspecified, not intractable, without status migrainosus; F32.A Depression, unspecified; M79.7 Fibromyalgia; W10.9XXA Fall (on) (from) unspecified stairs and steps, initial encounter; Y93.E9 Activity, other interior property and clothing maintenance; Y92.009 Unspecified place in unspecified non-institutional (private) residence as the place of occurrence of the external cause; Z86.711 Personal history of pulmonary embolism; Z79.01 Long term (current) use of anticoagulants; Z86.16 Personal history of COVID-19
CPT/HCPCS: Q9967

== ENCOUNTER 2022-04-26 19:11 | Emergency (ER) | payer MEDICARE ==
[~2022-04-26] VITALS: Ht 160 cm; Wt 68.0 kg
[2022-04-26] VITALS (8 sets, daily range): BP systolic 107–114; BP diastolic 60–71
[~2022-04-26 19:11] MED LIST changes: +MECLIZINE25 MG PO
== END 2022-04-26 22:00 | disposition home or self-care (01) ==
LOC: ED 19:11
DX: S16.1XXA Strain of muscle, fascia and tendon at neck level, initial encounter (principal); S40.011A Contusion of right shoulder, initial encounter; S42.031D Displaced fracture of lateral end of right clavicle, subsequent encounter for fracture with routine healing; M79.7 Fibromyalgia; W06.XXXA Fall from bed, initial encounter; W10.9XXD Fall (on) (from) unspecified stairs and steps, subsequent encounter; Z86.718 Personal history of other venous thrombosis and embolism

== ENCOUNTER 2022-06-24 14:53 | Emergency (ER) | payer MEDICARE ==
[~2022-06-24] VITALS: Ht 160 cm; Wt 69.0 kg
[2022-06-24 16:00] VITALS: BP 125/76
[2022-06-24 16:15] VITALS: BP 116/74
[2022-06-24 16:30] VITALS: BP 118/75
[2022-06-24 16:45] VITALS: BP 105/66
[2022-06-24 19:05] VITALS: BP 105/66
== END 2022-06-24 19:08 | disposition home or self-care (01) ==
LOC: ED 14:53
DX: G44.009 Cluster headache syndrome, unspecified, not intractable (principal)

== ENCOUNTER 2022-07-01 00:37 | Emergency (ER) | payer MEDICARE ==
[~2022-07-01] VITALS: Ht 160 cm; Wt 72.2 kg
[2022-07-01 02:41] VITALS: BP 123/72
== END 2022-07-01 02:44 | disposition home or self-care (01) ==
LOC: ED 00:37
DX: G43.909 Migraine, unspecified, not intractable, without status migrainosus (principal); M79.7 Fibromyalgia; Z86.718 Personal history of other venous thrombosis and embolism

== ENCOUNTER 2022-11-15 12:49 | Emergency (ER) | payer MEDICARE ==
[~2022-11-15] VITALS: Ht 160 cm; Wt 67.0 kg
[2022-11-15] VITALS (13 sets, daily range): BP systolic 107–123; BP diastolic 67–92
== END 2022-11-15 15:55 | disposition home or self-care (01) ==
LOC: ED 12:49
DX: G43.909 Migraine, unspecified, not intractable, without status migrainosus (principal)

== ENCOUNTER 2023-01-04 07:44 | Day surgery (SDC) | payer MEDICARE ==
[~2023-01-04] VITALS: Ht 160 cm; Wt 68.5 kg
[~2023-01-04 07:44] MED LIST changes: +ALLERGY RE50 MCG/ACT; +CRESTOR10 MG PO; +D2000 ULTRA PO; +EMGALITY100 MG/ML SC; +PEPCID40 MG PO
[2023-01-04 11:14] VITALS: BP 138/97
== END 2023-01-04 10:20 | disposition home or self-care (01) ==
LOC: ORM 07:44
PROVIDERS: ATTEND Internal Medicine Gastroenterology
PROC: 0DJD8ZZ Inspection of Lower Intestinal Tract, Via Natural or Artificial Opening Endoscopic (ICD-10-PCS; principal; 2023-01-04)
PROC: 0DB48ZX Excision of Esophagogastric Junction, Via Natural or Artificial Opening Endoscopic, Diagnostic (ICD-10-PCS; 2023-01-04)
PROC: 0DB78ZX Excision of Stomach, Pylorus, Via Natural or Artificial Opening Endoscopic, Diagnostic (ICD-10-PCS; 2023-01-04)
DX: Z12.11 Encounter for screening for malignant neoplasm of colon (principal); K21.00 Gastro-esophageal reflux disease with esophagitis, without bleeding; K31.9 Disease of stomach and duodenum, unspecified; K44.9 Diaphragmatic hernia without obstruction or gangrene; K29.70 Gastritis, unspecified, without bleeding; E78.5 Hyperlipidemia, unspecified; Z80.0 Family history of malignant neoplasm of digestive organs; Z86.010 Personal history of colon polyps; Z79.899 Other long term (current) drug therapy
CPT/HCPCS: 43239; G0104

== ENCOUNTER 2024-04-25 18:13 | Emergency (ER) | payer MEDICARE ==
[~2024-04-25] VITALS: Ht 160 cm; Wt 70.0 kg
[~2024-04-25 18:13] MED LIST changes: +ESTRADIOL; +HAIR SKIN & NAI1 TAB PO; +MELATONIN10 M1 PO; +PERCOCET 5/325M1 TAB PO; +PREDNISONE20 MG PO; +VIBRAMYCIN100 M2 PO; +VITAMIN D22000 UNIT PO; +ZYRTEC10 MG PO
[2024-04-25 20:45] VITALS: BP 128/84
== END 2024-04-25 20:45 | disposition home or self-care (01) ==
LOC: ED 18:13
DX: S63.502A Unspecified sprain of left wrist, initial encounter (principal); W01.0XXA Fall on same level from slipping, tripping and stumbling without subsequent striking against object, initial encounter; Y92.71 Barn as the place of occurrence of the external cause

== ENCOUNTER 2024-05-02 10:29 | Emergency (ER) | payer MEDICARE ==
[~2024-05-02] VITALS: Ht 160 cm; Wt 70.3 kg
[2024-05-02] VITALS (13 sets, daily range): BP systolic 55–123; BP diastolic 38–81
[2024-05-02] MEDS ORDERED: BENZONATATE 200 MG/CAP PO ONE (11:00)
[2024-05-02] MEDS ORDERED: ALBUTEROL SULFATE 2.5 MG VIAL NEB ONE (11:05)
[2024-05-02] MEDS ORDERED: AZITHROMYCIN 250 MG/TAB PO ONE (12:30)
[2024-05-02] MEDS ORDERED: AMOXICILLIN & POT CLAVULANATE 875 MG/TAB PO ONE (12:30)
[2024-05-02] MEDS ORDERED: ZITHROMAX250 MG PO (13:34)
[2024-05-02] MEDS ORDERED: AMOX/K CLAV875 M1 PO (13:34)
== END 2024-05-02 13:56 | disposition home or self-care (01) ==
LOC: ED 10:29
DX: J18.9 Pneumonia, unspecified organism (principal); M79.7 Fibromyalgia; G43.409 Hemiplegic migraine, not intractable, without status migrainosus; Z20.822 Contact with and (suspected) exposure to COVID-19